=== PATIENT | male | born 1960 | race Caucasian/White ===

== ENCOUNTER → 2023-09-14 06:31 | Day surgery (SDC) | payer OTHER, SELFPAY | LOC: GI 06:31 | PROVIDERS: ATTENDING PHYSICIAN Internal Medicine Gastroenterology | DX: Z12.11 Encounter for screening for malignant neoplasm of colon (principal); Z86.010 Personal history of colon polyps; K57.30 Diverticulosis of large intestine without perforation or abscess without bleeding; K64.8 Other hemorrhoids | CPT/HCPCS: G0105 ==

== ENCOUNTER 2023-09-30 19:00 | Outpatient (RCR) | payer OTHER, SELFPAY | END 2023-09-30 23:59 | disposition home or self-care (01) | LOC: RPT 19:00 | PROVIDERS: ATTENDING PHYSICIAN Psychiatry & Neurology Neurology; FAMILY PHYSICIAN Family Medicine | DX: G20.C Parkinsonism, unspecified (principal); Z73.6 Limitation of activities due to disability | CPT/HCPCS: 97110; 97112; 97162; 97530 ==

== ENCOUNTER 2024-11-09 08:05 | Emergency (ER) | payer OTHER, SELFPAY ==
[2024-11-09 08:09] VITALS: BP 109/87
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
[2024-11-09 08:58] VITALS: BMI 32.7
[2024-11-09] MEDS: TYLENOL 1000 MG PO (09:03)
[2024-11-09 09:04] VITALS: BP 110/69
== END 2024-11-09 10:35 | disposition home or self-care (01) ==
LOC: EMR 08:05
PROVIDERS: EMERGENCY PHYSICIAN Emergency Medicine; FAMILY PHYSICIAN Family Medicine
DX: T14.8XXA Other injury of unspecified body region, initial encounter (principal); I10 Essential (primary) hypertension; V49.40XA Driver injured in collision with unspecified motor vehicles in traffic accident, initial encounter; Y92.410 Unspecified street and highway as the place of occurrence of the external cause
CPT/HCPCS: 99283; 71046

== ENCOUNTER 2024-12-09 06:50 | Outpatient (RCR) | payer OTHER, SELFPAY | END 2024-12-09 23:59 | disposition home or self-care (01) | LOC: RPT 06:50 | PROVIDERS: ATTENDING PHYSICIAN Student in an Organized Health Care Education/Training Program; FAMILY PHYSICIAN Family Medicine | DX: S83.241D Other tear of medial meniscus, current injury, right knee, subsequent encounter (principal); Z73.6 Limitation of activities due to disability; M25.561 Pain in right knee; M62.81 Muscle weakness (generalized); R26.89 Other abnormalities of gait and mobility | CPT/HCPCS: 97010; 97110; 97162 ==

== ENCOUNTER 2025-01-06 06:45 | Outpatient (RCR) | payer OTHER, SELFPAY | END 2025-01-06 09:46 | disposition home or self-care (01) | LOC: RPT 06:45 | PROVIDERS: ATTENDING PHYSICIAN Student in an Organized Health Care Education/Training Program; FAMILY PHYSICIAN Family Medicine | DX: S83.241D Other tear of medial meniscus, current injury, right knee, subsequent encounter (principal); Z73.6 Limitation of activities due to disability; M25.561 Pain in right knee; M62.81 Muscle weakness (generalized); R26.89 Other abnormalities of gait and mobility | CPT/HCPCS: 97010; 97110 ==